=== PATIENT | male | born 1945 | race Caucasian/White ===

== ENCOUNTER 2019-11-10 07:05 | Outpatient (CLI) | payer MEDICARE, OTHER ==
[2019-11-10 11:18] LABS: Bacteria/HPF None Seen HPF (None Seen); Bilirubin Negative (Negative); Blood, Urine Negative (Negative); Clarity Clear (Clear); Glucose, Urine (Dipstick) Normal (Negative); Ketone, Urine Negative (Negative); Leukocyte Negative Leu/uL (Negative); Nitrite Negative (Negative); Protein, Urine (Dipstick) Negative (Neg-Trace); RBC/HPF 0-3 HPF (0-3); Specific Gravity, Urine 1.011 (1.002-1.036); Squamous Epithelial None Seen HPF (0-3); Urobilinogen Normal mg/dL (Less than 2); WBC/HPF 0-3 HPF (0-3); pH, Urine 6.5 (5.0-9.0)
[2019-11-10 11:19] LABS: Hemoglobin 15.9 g/dL (14.0-18.0); Mean Corpuscular HGB CONC 33.7 g/dL (32.0-36.0); Mean Corpuscular Hemoglobin 31.4 pg (27.0-31.0); Mean Corpuscular Volume 93.1 fL (78.0-98.0); Mean Platelet Volume 7.2 fL (7.4-10.4); Platelet Count 235 thou/uL (130-400); RBC Distribution Width 12.2 % (11.5-14.5); Red Blood Cell (RBC) Count 5.06 mill/uL (4.70-6.10); White Blood Cell (WBC) Count 6.8 thou/uL (4.8-10.8)
[2019-11-10 11:46] LABS: Anion Gap 11 mmol/L (10-20); BUN (Urea Nitrogen) 17 mg/dL (8.4-25.7); Calc. Creatinine Clearance 0 mL/min (70-130); Calcium 9.6 mg/dL (7.8-10.44); Carbon Dioxide 26 mmol/L (23-31); Chloride 103 mmol/L (98-107); Estimated GFR-MDRD 57; Glucose 97 mg/dL (83-110); Potassium 4.3 mmol/L (3.5-5.1); Sodium 136 mmol/L (136-145)
[2019-11-11 12:38] LABS: SARS-CoV-2 MS2 Positive; SARS-CoV-2 N Gene Negative; SARS-CoV-2 S Gene Negative; SARS-CoV-2 by NAA Not Detected (NotDetected); SARS-CoV-2 orf1ab Negative
== END 2019-11-10 07:06 | disposition home or self-care (01) ==
LOC: LABBT 07:05
PROVIDERS: ATTEND Urology
DX: Z01.818 Encounter for other preprocedural examination (principal); Z11.59 Encounter for screening for other viral diseases; Z51.81 Encounter for therapeutic drug level monitoring; N40.1 Benign prostatic hyperplasia with lower urinary tract symptoms; I48.0 Paroxysmal atrial fibrillation; I10 Essential (primary) hypertension; Z79.01 Long term (current) use of anticoagulants
CPT/HCPCS: 80048; 81001; 85027; 87086; 93005; U0003; 87635; 93010

== ENCOUNTER 2019-11-14 05:46 | Day surgery (SDC) | payer MEDICARE ==
[2019-11-08 13:46] VITALS: BMI 27.1
[2019-11-14] MEDS ORDERED: Fentanyl 100 MCG/2 ML VIAL ONE ×2 (06:23→06:38)
[2019-11-14] MEDS ORDERED: Levofloxacin 500 mg/D5W 100 ml Premix Bag ONE (06:40)
[2019-11-14] MEDS ORDERED: Ketorolac Tromethamine 30 MG/ML VIAL ONE (09:05)
[2019-11-14] MEDS ORDERED: Phenazopyridine HCl 97.5 MG TABLET ONE (09:05)
[2019-11-14] MEDS ORDERED: Oxybutynin 5 MG TAB ONE (09:05)
--- NOTE | 2019-11-14 10:33 | OP ---
DATE OF PROCEDURE: 11/14/2019 PREOPERATIVE DIAGNOSIS: Enlarged prostate with lower urinary tract symptoms. POSTOPERATIVE DIAGNOSIS: Enlarged prostate with lower urinary tract symptoms. PROCEDURE PERFORMED: UroLift x6 implants. ANESTHESIA: General. COMPLICATIONS: None. BLOOD LOSS: Minimal. SPECIMEN: None. DESCRIPTION OF PROCEDURE: After informed consent, the patient was taken to the operating room, transferred to the table on his own power. Anesthesia was established. A time-out was performed showing correct patient, site, and procedure. He was prepped and draped in the lithotomy position. I began by inserting the cystoscope, noting large coapting lateral lobes of the prostate with no significant bladder neck obstruction. The bladder was then entered and systematically examined noting [id number] trabeculation with no mucosal abnormalities. Both ureters were normal in appearance. The cystoscopy bridge was then replaced with the UroLift delivery device. The first treatment site was the patient's left side approximately 2 cm distal to the bladder neck. The distal tip of the delivery device was then angled laterally approximately 20 degrees of this position to compress the lateral lobe. The trigger was pulled, thereby deploying a needle containing the implant through the prostate. The needle was then retracted, allowing one end of the implant to be delivered to the capsular surface of the prostate. The implant was then tensioned to assure capsular seating and removal of slack monofilament. The device was then angled back towards midline and slowly advanced proximally (typically 3 to 4 mm) until cystoscopic verification of the monofilament being centered in the delivery bay. The urethral end piece was then affixed to the monofilament thereby tailoring the size of the implant. Excess filament was then severed. The delivery device was then readvanced into the bladder. The delivery device was replaced with a second delivery device and the same procedure repeated on the right side near the bladder neck deploying the second implant. Two additional implants, the third and fourth, were delivered just proximal to the verumontanum again one on the right and one on the left side of the prostate, following the same technique. Cystoscopy then revealed persistent obstruction in the mid to distal prostate and 2 more implants were delivered stacked just beneath and slightly proximal to the verumontanum implants, one on the left and one on the right. A final cystoscopic view revealed no persistent obstruction and an excellent anterior channel into the bladder. Total number of implants used 6. The patient's bladder was entered and then refilled with about 250 mL of saline. The patient was then awoken from anesthesia and transferred back to his hospital bed and taken to PACU in stable condition, where he will be discharged home upon recovery. CRITERIA: No active UTI. Conservative management has failed and surgical intervention is indicated. IPSS 18/2. Prostate volume 49 g. Job ID: [id number]
[2019-11-14] MEDS ORDERED: Ondansetron PF 4 MG/2 ML Vial ONE (10:57)
[2019-11-14] MEDS ORDERED: EPHEDRINE 25 MG/5 ML SYRINGE ONE (10:57)
[2019-11-14] MEDS ORDERED: PROPOFOL 200 MG/20 ML VIAL ONE (10:57)
[2019-11-14] MEDS ORDERED: Lidocaine 1% PF 5 ML VIAL ONE (10:57)
== END 2019-11-14 09:20 | disposition home or self-care (01) ==
LOC: SDC 05:46
PROVIDERS: ATTEND Urology
PROC: 0T7D8DZ Dilation of Urethra with Intraluminal Device, Via Natural or Artificial Opening Endoscopic (ICD-10-PCS; principal; 2019-11-14)
DX: N40.1 Benign prostatic hyperplasia with lower urinary tract symptoms (principal); N13.8 Other obstructive and reflux uropathy; N32.89 Other specified disorders of bladder; I10 Essential (primary) hypertension; J30.2 Other seasonal allergic rhinitis; I48.91 Unspecified atrial fibrillation; M19.90 Unspecified osteoarthritis, unspecified site; N52.9 Male erectile dysfunction, unspecified; E78.00 Pure hypercholesterolemia, unspecified; G47.33 Obstructive sleep apnea (adult) (pediatric); Z87.891 Personal history of nicotine dependence; Z79.01 Long term (current) use of anticoagulants; Z79.82 Long term (current) use of aspirin; Z79.899 Other long term (current) drug therapy
CPT/HCPCS: C1889; J1885; J1956; J2405; J2704; J3010

== ENCOUNTER 2021-10-02 11:17 | Outpatient (CLI) | payer MEDICARE ==
[2021-10-02 12:23] LABS: Hemoglobin 15.5 g/dL (13.5-17.5); Mean Corpuscular HGB CONC 34.3 g/dL (32.0-36.0); Mean Corpuscular Hemoglobin 29.8 pg (27.0-33.0); Mean Corpuscular Volume 86.8 fl (81.2-95.1); Mean Platelet Volume 9.5 fl (7.4-10.4); Platelet Count 254 10x3/uL (150-450); RBC Distribution Width 12.9 % (11.5-14.5); Red Blood Cell (RBC) Count 5.21 10x6/uL (4.32-5.72); White Blood Cell (WBC) Count 8.7 10x3/uL (3.5-10.5)
[2021-10-02 12:45] LABS: Anion Gap 15 mmol/L (10-20); BUN (Urea Nitrogen) 19 mg/dL (8.4-25.7); Calc. Creatinine Clearance 0 mL/min (70-130); Calcium 10.1 mg/dL (7.8-10.44); Carbon Dioxide 25 mmol/L (23-31); Chloride 100 mmol/L (98-107); Glucose 84 mg/dL (83-110); Potassium 4.3 mmol/L (3.5-5.1); Sodium 136 mmol/L (136-145)
== END 2021-10-02 11:18 | disposition home or self-care (01) ==
LOC: LABBT 11:17
PROVIDERS: ATTEND Urology
DX: Z01.818 Encounter for other preprocedural examination (principal); N43.41 Spermatocele of epididymis, single; Z20.822 Contact with and (suspected) exposure to COVID-19
CPT/HCPCS: 80048; 85027; 93005; U0003; U0005; 93010

== ENCOUNTER 2021-10-07 06:19 | Day surgery (SDC) | payer MEDICARE ==
[2021-10-02 14:34] VITALS: BMI 25.2
[2021-10-07] MEDS ORDERED: Bacitracin Zinc Ointment 30 gm TUBE ONE (07:01)
[2021-10-07] MEDS ORDERED: Bupivacaine 0.25% HCL 30 ML VIAL ONE (07:01)
[2021-10-07] MEDS ORDERED: Sodium Chloride 0.9% 100 ML ONE (08:28)
[2021-10-07] MEDS ORDERED: CEFAZOLIN 2 GM VIAL ONE (08:28)
[2021-10-07] MEDS ORDERED: Albuterol Sulfate HFA (OR ONLY) ONE (08:30)
[2021-10-07] MEDS ORDERED: fentaNYL Citrate/PF 100 MCG/2 ML SYRINGE ONE (08:30)
== END 2021-10-07 10:41 | disposition home or self-care (01) ==
LOC: SDC 06:19
PROVIDERS: ATTEND Urology
PROC: 0VBJ0ZZ Excision of Right Epididymis, Open Approach (ICD-10-PCS; principal; 2021-10-07)
DX: N43.41 Spermatocele of epididymis, single (principal); N52.01 Erectile dysfunction due to arterial insufficiency; N40.1 Benign prostatic hyperplasia with lower urinary tract symptoms; E78.1 Pure hyperglyceridemia; G47.33 Obstructive sleep apnea (adult) (pediatric); I10 Essential (primary) hypertension; I48.91 Unspecified atrial fibrillation; Z87.891 Personal history of nicotine dependence; Z79.01 Long term (current) use of anticoagulants; Z79.899 Other long term (current) drug therapy
CPT/HCPCS: J0690; J3490; S0020